=== PATIENT | male | born 1970 | race Caucasian/White ===

== ENCOUNTER 2019-03-24 11:11 | Emergency (ER) | payer SELFPAY ==
[~2019-03-24] VITALS: Ht 182.9 cm; Wt 190.5 kg
[~2019-03-24 11:11] MED LIST: ALBIPROI INH; AZIT250 PO; CEPH500 PO; CODGUAEL PO; RXCODGUASY PO
[2019-03-24] MEDS ORDERED: LEVSOD25 PO (11:23)
[2019-03-24] MEDS ORDERED: TERA5 PO ×2 (11:23→12:05)
[2019-03-24] MEDS ORDERED: METO25ER PO (11:23)
[2019-03-24] MEDS ORDERED: PRAV20 PO ×2 (11:24→12:05)
[2019-03-24] MEDS ORDERED: HYDCHL12.5 PO (11:24)
[2019-03-24] MEDS ORDERED: Hydrochloroth12.5 MG PO (12:05)
[2019-03-24] MEDS ORDERED: Synthroid25 MCG PO (12:05)
[2019-03-24] MEDS ORDERED: Toprol Xl25 MG PO (12:05)
== END 2019-03-24 12:22 | disposition home or self-care (01) ==
LOC: ER 11:11
DX: Z76.0 Encounter for issue of repeat prescription (principal); Z79.899 Other long term (current) drug therapy; I10 Essential (primary) hypertension; E78.00 Pure hypercholesterolemia, unspecified; E03.9 Hypothyroidism, unspecified; F17.290 Nicotine dependence, other tobacco product, uncomplicated
CPT/HCPCS: 99281